=== PATIENT | male | born 1970 | race Caucasian/White ===

== ENCOUNTER 2018-01-27 07:30 | Day surgery (SDC) | payer BC ==
[2018-01-23 12:03] VITALS: BMI 29.8
[2018-01-27 07:12] LABS: Basophils % (A) 0 %; Eosinophils # (A) 0.3 k/uL (0-0.7); Eosinophils % (A) 5 %; HCT 41.4 % (39.0-53.0); HGB 14.7 gm/dL (13.0-17.5); Lymphocytes # (A) 1.9 k/uL (1.0-4.8); Lymphocytes % (A) 31 %; MCH 30.9 pg (25.0-35.0); MCHC 35.5 g/dL (31.0-37.0); MCV 87.1 fL (80.0-100.0); Monocytes # (A) 0.4 k/uL (0-1.0); Monocytes % (A) 7 %; Neutrophils # (A) 3.3 k/uL (1.3-7.7); Neutrophils % (A) 54 %; Platelet Count 308 k/uL (150-450); RBC 4.76 m/uL (4.30-5.90); RDW 12.8 % (11.5-15.5); WBC 6.1 k/uL (3.8-10.6)
[2018-01-27 07:14] VITALS: RESP 18; TEMP 98.2
[2018-01-27 07:21] LABS: Anion Gap 9 mmol/L; Calcium 9.6 mg/dL (8.4-10.2); Carbon Dioxide 24 mmol/L (22-30); Chloride 105 mmol/L (98-107); Glucose 135 mg/dL (74-99); Sodium 138 mmol/L (137-145)
[2018-01-27 07:30] LABS: Potassium 5.2 mmol/L (3.5-5.1)
[~2018-01-27 07:30] MED LIST: ALPRAZolam 0.25 MG TAB PO PRN; ALPRAZolam 0.5 MG TAB PO PRN; ASPIRIN 325 MG TAB PO STA; ATORVASTATIN 80 MG TAB PO STA; HEPARIN SODIUM 1,000 UN/ML (10ML VL) ONE; IV FLUID CONTINUATION 950 ML IV ONE; LIDOCAINE 1% INJ 10MG/ML (20 ML MDV) ONE; NITROGLYCERIN SL TABS 0.4 MG TAB SUBLINGUAL PRN; SODIUM CHLORIDE 0.9% 1,000 ML in EMPTY BAG 1 BAG IV ONE; VERAPAMIL 2.5 MG/ML 2 ML AMP ONE; fentaNYL (PF) 50 MCG/ML 2 ML AMP ONE
[2018-01-27 07:31] LABS: Blood Urea Nitrogen 15 mg/dL (9-20)
[2018-01-27] MEDS ORDERED: fentaNYL (PF) 50 MCG/ML 2 ML AMP IV ONE (07:37)
[2018-01-27] MEDS ORDERED: LIDOCAINE 1% INJ 10MG/ML (20 ML MDV) SQ ONE (07:40)
[2018-01-27] MEDS ORDERED: MIDAZOLAM 2 MG/2 ML VIAL ONE (07:40)
[2018-01-27] MEDS ORDERED: VERAPAMIL SYRINGE (5 MG/10 ML) INTRAARTER ONE (07:42)
[2018-01-27] MEDS ORDERED: MIDAZOLAM 2 MG/2 ML VIAL IV ONE (07:43)
[2018-01-27] MEDS ORDERED: HEPARIN SODIUM 1,000 UN/ML (10ML VL) IV ONE (07:48)
[2018-01-27] MEDS ORDERED: IOPAMIDOL-370 125ML BTL INJ ONE (07:53)
[2018-01-27] MEDS ORDERED: RX INFO: IV CONTRAST WAS GIVEN 1 EACH MISC MISCELLANE PRN (08:10)
[2018-01-27] MEDS ORDERED: SODIUM CHLORIDE 0.9% 1,000 ML IV SCH (08:15)
--- NOTE | 2018-01-27 08:29 | CC ---
CARDIAC CATHETERIZATION REPORT Mr. Carvalho is a 47-year-old male known history of hyperlipidemia, strong family history of premature coronary artery disease who recently underwent a myocardial perfusion imaging because of symptoms of dyspnea on exertion that revealed evidence of inducible ischemia involving the inferior wall. In view of his family history and his presentation, recommendation was made regarding cardiac catheterization. The procedure, its risks and the complications were discussed with the patient who is in full understanding and agreement. 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 Using Xylocaine anesthesia in the Seldinger technique, a 6-Serbian sheath was introduced in the right radial artery. Selective right and left coronary angiography performed using 6- Serbian 4 bend right and left Maliha catheter. Multiple views of the coronary artery including hemiaxial views were obtained. Following that a 5-Serbian tight pigtail catheter was introduced in the left ventricle and a 30-degree CHASE view of the left ventricle was obtained. Following the catheter and sheaths were removed. Hemostasis was obtained with deployment of a TR band. There was no immediate complication. Patient was returned to his room in stable condition. Of note, the patient received 5000 units of intravenous heparin as well as intra-arterial verapamil. FINDINGS: LEFT MAIN: This is a short size vessel bifurcating in left circumflex, left anterior descending artery. Left main coronary artery is without any significant obstructive disease. LEFT ANTERIOR DESCENDING ARTERY: This is a large size vessel reaching toward the apex with a wraparound around apex segment giving rise to 2 diagonal branches. The first one is large in caliber. The left anterior descending artery as well as branches have no evidence of obstructive coronary artery disease. LCX :This is a large dominant vessel giving rise to one obtuse marginal branch and distally bifurcating PDA and posterolateral segment and branches. The left circumflex as well as branches have no evidence of obstructive coronary artery disease. RIGHT CORONARY ARTERY: This is a small nondominant vessel that has no evidence of high- grade stenosis. LEFT VENTRICULOGRAM: Left ventriculogram is performed in 30-degree CHASE view and revealed normal left ventricular size and systolic function. The ejection fraction is 60%. There was arrhythmia induced mitral regurgitation. HEMODYNAMICS: There was no gradient across the aortic valve. The left ventricular end- diastolic pressure was 10 to 12 mmHg. CONCLUSION: 1. Normal coronary arteries. 2. Normal left ventricular size and systolic function. RECOMMENDATION: In view of finding anatomy, I recommend continue medical therapy with aggressive coronary risk modifications that have been initiated. Those findings and recommendation were discussed with the patient and his family and are in full understanding and agreement. DURATION OF PROCEDURE: 18 minutes. WILLIE / ERICKSON: [id number] / [id number]
[2018-01-27] MEDS ORDERED: NON-FORMULARY DRUG (Ascorbic Acid [Vitamin C] 1,000 MG) PO SCH (09:00)
[2018-01-27 13:17] VITALS: BP 105/68; PULSE 72
[2018-01-27] MEDS ORDERED: GEMFIBROZIL 600 MG TAB PO SCH (17:30)
[2018-01-28] MEDS ORDERED: ATORVASTATIN 80 MG TAB PO SCH (09:00)
[2018-01-28] MEDS ORDERED: NON-FORMULARY DRUG (Aspirin [Adult Low Dose Aspirin Ec] 81 MG) PO SCH (09:00)
== END 2018-01-27 10:00 | disposition home or self-care (01) ==
LOC: CATHCVL 07:30
PROVIDERS: ATTEND Internal Medicine Interventional Cardiology
DX: I34.0 Nonrheumatic mitral (valve) insufficiency (principal); R94.39 Abnormal result of other cardiovascular function study; E78.5 Hyperlipidemia, unspecified; E78.00 Pure hypercholesterolemia, unspecified; Z82.49 Family history of ischemic heart disease and other diseases of the circulatory system; Z79.82 Long term (current) use of aspirin; Z79.899 Other long term (current) drug therapy
CPT/HCPCS: 93458; 80048; 85025; C1894; C1769; J2250; J2001; J3010; J1644; Q9967